=== PATIENT | female | born 1945 | race Two or more races ===

== ENCOUNTER 2019-04-21 18:09 | Emergency (ER) | payer OTHER ==
[~2019-04-21] VITALS: Ht 157.5 cm; Wt 90.7 kg
[~2019-04-21 18:09] MED LIST: COUMADIN4 MG PO; COZAAR25 MG; NEURONTIN300 MG PO; SIMBASTATIN; TOPROL XL25 M1
[2019-04-21] MEDS ORDERED: FORTAMET1000 MG (18:30)
== END 2019-04-21 23:05 | disposition home or self-care (01) ==
LOC: ER 18:09
DX: R07.89 Other chest pain (principal)

== ENCOUNTER 2020-05-30 10:39 | Outpatient (CLI) | payer OTHER ==
[~2020-05-30 10:39] MED LIST changes: +FORTAMET1000 MG
== END 2020-05-30 10:46 | disposition home or self-care (01) ==
LOC: RAD 10:39
PROVIDERS: ATTEND Orthopaedic Surgery
DX: M25.511 Pain in right shoulder (principal); M25.512 Pain in left shoulder; M54.6 Pain in thoracic spine; M54.5 Low back pain; M25.562 Pain in left knee; M25.531 Pain in right wrist; M25.532 Pain in left wrist; S90.31XA Contusion of right foot, initial encounter

== ENCOUNTER 2020-06-23 10:29 | Outpatient (CLI) | payer OTHER | END 2020-06-23 10:46 | disposition home or self-care (01) | LOC: MAMO-SONO 10:29 | DX: Z12.31 Encounter for screening mammogram for malignant neoplasm of breast (principal); N64.59 Other signs and symptoms in breast ==

== ENCOUNTER 2020-06-23 12:14 | Outpatient (CLI) | payer OTHER | END 2020-06-23 12:40 | disposition home or self-care (01) | LOC: NUCLEAR 12:14 | PROVIDERS: ATTEND Orthopaedic Surgery | DX: M80.021A Age-related osteoporosis with current pathological fracture, right humerus, initial encounter for fracture (principal) ==

== ENCOUNTER 2020-09-30 09:55 | Outpatient (CLI) | payer OTHER | END 2020-09-30 10:07 | disposition home or self-care (01) | LOC: TOM 09:55 | PROVIDERS: ATTEND Internal Medicine Gastroenterology | DX: A08.8 Other specified intestinal infections (principal); Z80.0 Family history of malignant neoplasm of digestive organs ==

== ENCOUNTER → 2020-11-18 10:47 | Outpatient (CLI) | payer OTHER | END | disposition home or self-care (01) | LOC: LAB 10:47 | PROVIDERS: ATTEND Orthopaedic Surgery | DX: E55.9 Vitamin D deficiency, unspecified (principal); M85.9 Disorder of bone density and structure, unspecified; E21.3 Hyperparathyroidism, unspecified; M81.8 Other osteoporosis without current pathological fracture; E56.1 Deficiency of vitamin K; E88.9 Metabolic disorder, unspecified ==

== ENCOUNTER 2020-11-18 11:18 | Outpatient (CLI) | payer OTHER | END 2020-11-18 11:28 | disposition home or self-care (01) | LOC: RAD 11:18 | PROVIDERS: ATTEND Orthopaedic Surgery | DX: M17.12 Unilateral primary osteoarthritis, left knee (principal); M25.561 Pain in right knee; R93.6 Abnormal findings on diagnostic imaging of limbs; M25.551 Pain in right hip; M25.552 Pain in left hip ==

== ENCOUNTER 2021-01-16 09:05 | Outpatient (CLI) | payer OTHER | END 2021-01-16 09:17 | disposition home or self-care (01) | LOC: TOM 09:05 | DX: I65.21 Occlusion and stenosis of right carotid artery (principal) | CPT/HCPCS: 70498; Q9965 ==

== ENCOUNTER 2021-01-24 11:08 | Outpatient (CLI) | payer OTHER | END 2021-01-24 11:22 | disposition home or self-care (01) | LOC: NUCLEAR 11:08 | PROVIDERS: ATTEND Internal Medicine Cardiovascular Disease | DX: I82.4Z2 Acute embolism and thrombosis of unspecified deep veins of left distal lower extremity (principal); R60.0 Localized edema; R09.89 Other specified symptoms and signs involving the circulatory and respiratory systems ==

== ENCOUNTER 2021-01-25 10:50 | Emergency (ER) | payer OTHER ==
[~2021-01-25] VITALS: Ht 157.5 cm; Wt 81.6 kg
== END 2021-01-25 14:22 | disposition home or self-care (01) ==
LOC: ER 10:50
DX: M79.672 Pain in left foot (principal)

== ENCOUNTER 2021-03-17 07:13 | Outpatient (CLI) | payer OTHER | END 2021-03-17 07:21 | disposition home or self-care (01) | LOC: NUCLEAR 07:13 | PROVIDERS: ATTEND Emergency Medicine Pediatric Emergency Medicine | DX: I50.1 Left ventricular failure, unspecified (principal) | CPT/HCPCS: 78452; 93017; A9500; J0153 ==

== ENCOUNTER 2021-08-21 10:49 | Outpatient (CLI) | payer OTHER | END 2021-08-21 10:55 | disposition home or self-care (01) | LOC: NUCLEAR 10:49 | DX: R09.89 Other specified symptoms and signs involving the circulatory and respiratory systems (principal) ==

== ENCOUNTER 2021-12-28 07:15 | Outpatient (CLI) | payer OTHER | END 2021-12-28 07:16 | disposition home or self-care (01) | LOC: NUCLEAR 07:15 | PROVIDERS: ATTEND Orthopaedic Surgery | DX: D16.22 Benign neoplasm of long bones of left lower limb (principal); Z91.041 Radiographic dye allergy status; Z91.018 Allergy to other foods; Z88.8 Allergy status to other drugs, medicaments and biological substances | CPT/HCPCS: 78315; A9503 ==

== ENCOUNTER 2022-01-22 08:56 | Outpatient (CLI) | payer OTHER | END 2022-01-22 08:57 | disposition home or self-care (01) | LOC: NUCLEAR 08:56 | DX: R09.89 Other specified symptoms and signs involving the circulatory and respiratory systems (principal); I63.9 Cerebral infarction, unspecified; Z91.018 Allergy to other foods; Z88.8 Allergy status to other drugs, medicaments and biological substances; Z91.041 Radiographic dye allergy status ==

== ENCOUNTER 2022-04-19 10:00 | Outpatient (CLI) | payer OTHER | END 2022-04-19 16:06 | disposition home or self-care (01) | LOC: MRI 10:00 | DX: M54.6 Pain in thoracic spine (principal); M54.51 Vertebrogenic low back pain | CPT/HCPCS: 72146; 72148 ==

== ENCOUNTER 2022-12-21 13:31 | Outpatient (CLI) | payer OTHER | END 2022-12-21 13:39 | disposition home or self-care (01) | LOC: RAD 13:31 | PROVIDERS: ATTEND Orthopaedic Surgery | DX: M25.512 Pain in left shoulder (principal) ==

== ENCOUNTER 2022-12-27 08:53 | Outpatient (CLI) | payer OTHER | END 2022-12-27 08:56 | disposition home or self-care (01) | LOC: LAB 08:53 | DX: R10.11 Right upper quadrant pain (principal) ==

== ENCOUNTER 2022-12-27 09:34 | Outpatient (CLI) | payer OTHER | END 2022-12-27 09:45 | disposition home or self-care (01) | LOC: SONOGRAMA 09:34 | PROVIDERS: ATTEND Colon & Rectal Surgery | DX: R10.11 Right upper quadrant pain (principal) ==

== ENCOUNTER → 2022-12-31 | Outpatient (CLI) | payer OTHER | END | disposition home or self-care (01) | LOC: NUCLEAR 07:00 | PROVIDERS: ATTEND Colon & Rectal Surgery | DX: R10.11 Right upper quadrant pain (principal) | CPT/HCPCS: 78227; A9537; J2805 ==